=== PATIENT | male | born 1940 | race Caucasian/White ===

== ENCOUNTER 2018-08-31 13:46 | Emergency (ER) | payer MEDICARE, OTHER ==
[2018-08-31] MEDS ORDERED: Glucagon,Human Recombinant 1 MG Vial IVPUSH ONE (14:59)
--- NOTE | 2018-08-31 15:04 | EDM.PDOC ---
ED HPI GENERAL MEDICAL PROBLEM - General Chief Complaint: ENT Problem Stated Complaint: CHEST PAIN Time Seen by Provider: 08/31/18 13:53 Source of Information: Reports: Patient History Limitations: Reports: No Limitations - History of Present Illness INITIAL COMMENTS - FREE TEXT/NARRATIVE: 78 yo M comes in with after choking on some Hamburger at [employer] today. He states he feels the food is stuck in his throat and chest. He has never had this happen before. He does have a history of GERD and esophageal strictures, last saw surgeon for treatment of strictures "a few years ago" at [facility]. He also wears partial dentures, but was not wearing them today bc they have been causing him problems. He is able to breathe and swallow OK, but is actively spitting up and did vomit up some food bolus here. He currently complains of throat pain as well as 5-6/10 dull chest/epigastric pain. said he has been belching and was sweating earlier. He has no heart history. No other concerns at this time. PCP is Dr. Jenkins. Epigastric Pain Score (Numeric/FACES): 8 - Related Data Allergies Allergy/AdvReac Type Severity Reaction Status Date / Time No Known Allergies Allergy Verified 08/31/18 13:54 Home Meds: Home Meds Omeprazole [Prilosec] 20 mg PO DAILY 06/29/14 [History] B2/Vit A,C & E/Lut/Zeaxanth/Mn [Icaps] 1 tab PO DAILY 08/31/18 [History] Past Medical History Gastrointestinal History: Reports: GERD, Hiatal Hernia - Past Surgical History HEENT Surgical History: Reports: Other (See Below) Other HEENT Surgeries/Procedures: had esophagus stretched multiple times Social & Family History - Tobacco Use Smoking Status *Q: Current Every Day Smoker Years of Tobacco use: 65 Packs/Tins Daily: 0.2 - Caffeine Use Caffeine Use: Reports: Coffee - Recreational Drug Use Recreational Drug Use: No ED ROS ENT - Review of Systems Review Of Systems: See Below Constitutional: Reports: No Symptoms HEENT: Reports: Throat Pain Respiratory: Reports: No Symptoms. Denies: Shortness of Breath, Cough Cardiovascular: Reports: Chest Pain (5-) Endocrine: Denies: Polyuria (5-6/10) GI/Abdominal: Reports: Nausea, Vomiting (small amt of food bolus x 1). Denies: Abdominal Pain, Diarrhea : Reports: No Symptoms Musculoskeletal: Reports: No Symptoms Skin: Reports: No Symptoms Neurological: Reports: No Symptoms. Denies: Numbness, Tingling, Trouble Speaking Psychiatric: Reports: No Symptoms Hematologic/Lymphatic: Reports: No Symptoms Immunologic: Reports: No Symptoms ED EXAM, ENT - Physical Exam Exam: See Below Exam Limited By: No Limitations General Appearance: Alert, WD/WN, No Apparent Distress Eye Exam: Bilateral Eye: Normal Inspection Mouth/Throat: Normal Inspection, Normal Gums, Normal Lips, Normal Oropharynx, Throat Pain. No: Normal Teeth (missing numerous teeth, usually wears partial dentures but doesn't have them in), Hoarse Voice, Muffled Voice Neck: Normal Inspection, Supple, Non-Tender, Full Range of Motion Respiratory/Chest: No Respiratory Distress, Lungs Clear, Normal Breath Sounds, No Accessory Muscle Use, Chest Non-Tender Cardiovascular: Normal Peripheral Pulses, Regular Rate, Rhythm, No Edema, No Gallop, No JVD, No Murmur, No Rub GI/Abdominal: Normal Bowel Sounds, Soft, Non-Tender, No Organomegaly, No Distention, No Abnormal Bruit, No Mass Back: Normal Inspection Neurological: Alert, Oriented, CN II-XII Intact, Normal Cognition, Normal Gait, Normal Reflexes, No Motor/Sensory Deficits Psychiatric: Normal Affect, Normal Mood Skin: Warm, Dry, Intact, Normal Color, No Rash EKG INTERPRETATION EKG Date: 08/31/18 Time: 13:55 Rhythm: NSR Rate (Beats/Min): 91 [place]: Normal P-Wave: Present QRS: Normal ST-T: Normal QT: Normal Comparison: NA - No Prior EKG Course - Vital Signs Last Recorded V/S: Last Vital Signs Temp 97.2 F 08/31/18 13:51 Pulse 83 08/31/18 13:51 Resp 16 08/31/18 13:51 BP 194/119 H 08/31/18 13:51 Pulse Ox 97 08/31/18 13:51 - Orders/Labs/Meds Orders: Active Orders 24 hr Category Date Time Status EKG Documentation Completion [RC] ASDIRECTED Care 08/31/18 14:59 Active EKG 12 Lead [EK] Stat Ther 08/31/18 14:58 Ordered Labs: Laboratory Tests 08/31/18 Range/Units 15:15 Troponin I < 0.017 (0.00-0.056) ng/mL Meds: Medications Discontinued Medications Generic Name Dose Route Start Last Admin Trade Name Jennifer PRN Reason Stop Dose Admin Glucagon 1 mg 08/31/18 14:59 Glucagen IVPUSH 08/31/18 15:00 ONETIME ONE - Re-Assessments/Exams Free Text/Narrative Re-Assessment/Exam: 08/31/18 14:30 Discussed case with general surgeon Dr. Torres. He states that if the patient can swallow water/soda, does not need surgery at this time. Also, if he is unable to swallow and has a h/o esophageal strictures, he recommends he be sent to [facility] so they can do both the food removal and balloon for strictures. 08/31/18 15:00 Pt is tolerating warm water and soda at this time. Likely will not need surgery. Will give Glucagon if he still feels that there is food bolus stuck. At this time, he does not feel like it is there anymore. Will go ahead and complete a cardiac workup as well since he is having chest pain- EKG, troponin, CXR ordered. 08/31/18 15:[address] Chavira and myself- nothing acute seen at this time. CXR reviewed by Dr. Oliver and myself- nothing acute seen at this time. 08/31/18 16:05 Troponin <0.017 Cardiac workup is negative. Pt is feeling better. He is stable enough to go home. Departure - Departure Time of Disposition: 16:05 Disposition: Home, Self-Care 01 Condition: Good Clinical Impression: Food sticks on swallowing - Discharge Information *PRESCRIPTION DRUG MONITORING PROGRAM REVIEWED*: Not Applicable *COPY OF PRESCRIPTION DRUG MONITORING REPORT IN PATIENT JOAQUIN: Not Applicable Instructions: Dysphagia Eating Plan, Bite Size Food Referrals: Fuentes Jenkins MD [Primary Care Provider] - Forms: ED Department Discharge Additional Instructions: You were seen in the ED today for chest pain and difficulty swallowing after choking on hamburger. Your cardiac workup was negative. You were able to swallow water and soda while here, so there is no true obstruction that needs surgical intervention at this time. Due to your history of esophageal strictures , recommend follow up with your services manager, which you can get a referral by your primary care physician. Wear your dentures and try to avoid large pieces of food to prevent future choking. Please return to ED if new or worsening symptoms. - My Orders Last 24 Hours: My Active Orders 08/31/18 14:58 EKG 12 Lead [EK] Stat 08/31/18 14:59 EKG Documentation Completion [RC] ASDIRECTED - Assessment/Plan Last 24 Hours: My Active Orders 08/31/18 14:58 EKG 12 Lead [EK] Stat 08/31/18 14:59 EKG Documentation Completion [RC] ASDIRECTED
--- NOTE | 2018-08-31 15:56 | CR ---
Chest: Two views of the chest are obtained. Comparison: No prior chest imaging. Heart size is normal. Tortuous thoracic aorta is seen. Lungs are clear. Bony structures appear within normal limits for the patient's age. Impression: 1. Nothing acute is seen on two-view chest x-ray. Diagnostic code #1
[2018-08-31 16:30] VITALS: BP 158/88
== END 2018-08-31 16:28 | disposition home or self-care (01) ==
LOC: JD.ED 13:46
DX: R09.89 Other specified symptoms and signs involving the circulatory and respiratory systems (principal); F17.210 Nicotine dependence, cigarettes, uncomplicated; K21.9 Gastro-esophageal reflux disease without esophagitis; Z79.899 Other long term (current) drug therapy
CPT/HCPCS: 36415; 71046; 71046-26; 84484; 93005; 93010; 99283; 99285-25

== ENCOUNTER 2018-09-15 07:48 | Day surgery (SDC) | payer MEDICARE, OTHER ==
--- NOTE | 2018-09-14 13:18 | PCM.PREANE ---
Preanesthetic Assessment - Anesthesia/Transfusion/Family Hx Anesthesia History: Prior Anesthesia Without Reaction Family History of Anesthesia Reaction: No Transfusion History: No Prior Transfusion(s) Intubation History: Unknown - Review of Systems General: No Symptoms Pulmonary: No Symptoms (smokes 5-6 cigarettes per day times 60 years.) Cardiovascular: No Symptoms Gastrointestinal: No Symptoms (GERD), Difficulty Swallowing Neurological: No Symptoms Other: Reports: Easy Bruising, Throat Pain (history of and none present today.) - Physical Assessment NPO Status Date: 09/14/18 NPO Status Time: 21:00 Pulse: 76 O2 Sat by Pulse Oximetry: 96 Respiratory Rate: 16 Blood Pressure: 143/73 Temperature: 36.3 C Height: 1.68 m Weight: 87 kg ASA Class: 2 Mental Status: Alert & Oriented x3 Dentition: Reports: Normal Dentition, Partial, Caries Thyro-Mental Finger Breadths: 3 Mouth Opening Finger Breadths: 3 ROM/Head Extension: Full Lungs: Clear to Auscultation, Normal Respiratory Effort Cardiovascular: Regular Rate, Regular Rhythm, No Murmurs - Lab Values: All labs reviewed and noted and within acceptable ranges to proceed with scheduled procedure. - Imaging/EKG Impressions: EKG: SR rate=91, with pac's, abnormal Rwave progression CXR: unremarkable. - Allergies Allergies/Adverse Reactions: Allergies Allergy/AdvReac Type Severity Reaction Status Date / Time amoxicillin Allergy Headache Verified 09/14/18 14:20 - Anesthesia Plan Pre-Op Medication Ordered: None - Acknowledgements Anesthesia Type Planned: MAC Pt an Appropriate Candidate for the Planned Anesthesia: Yes Alternatives and Risks of Anesthesia Discussed w Pt/Guardian: Yes Pt/Guardian Understands and Agrees with Anesthesia Plan: Yes PreAnesthesia Questionnaire Gastrointestinal History: Reports: GERD, Hiatal Hernia - Past Surgical History HEENT Surgical History: Reports: Other (See Below) Other HEENT Surgeries/Procedures: had esophagus stretched multiple times - HOME MEDS Home Medications: Home Meds Omeprazole [Prilosec] 20 mg PO DAILY 06/29/14 [History] Ibuprofen 1 - 3 tab PO Q6H PRN 09/14/18 [History] Lutein/Minerals/Vit A,C & E [Ocuvite] 1 tab PO DAILY 09/14/18 [History] Sildenafil [Revatio] 100 mg PO ASDIRECTED PRN 09/14/18 [History]
[~2018-09-15 07:48] MED LIST: Ketamine 500 mg/10 ML MDV ONE; Midazolam Oral Soln 10 MG/5 ML Oral Syringe ONE; Propofol 200 MG/20 ML SDV ONE; fentaNYL 100 MCG/2 ML SDV ONE
[2018-09-15] MEDS ORDERED: Lidocaine 1%/Sod Bicarbonate in NS 8.4% 1 ML Syringe IDERM PRN (08:21)
[2018-09-15] MEDS ORDERED: Sodium Chloride 0.9% 10 ML Syringe FLUSH PRN (08:21)
[2018-09-15] MEDS ORDERED: fentaNYL 100 MCG/2 ML SDV ONE (08:26)
[2018-09-15] MEDS ORDERED: Lactated Ringers 1,000 ML IV SCH (08:30)
--- NOTE | 2018-09-15 09:40 | PCM48HPAN ---
Post Anesthesia Note - EVALUATION WITHIN 48HRS OF ANESTHETIC Vital Signs in Normal Range: Yes Patient Participated in Evaluation: Yes Respiratory Function Stable: Yes Airway Patent: Yes Cardiovascular Function Stable: Yes Hydration Status Stable: Yes Pain Control Satisfactory: Yes Nausea and Vomiting Control Satisfactory: Yes Mental Status Recovered: Yes
--- NOTE | 2018-09-15 09:49 | PCM.OPNOTE ---
- General Post-Op/Procedure Note Date of Surgery/Procedure: 09/15/18 Operative Procedure(s): EGD with bx an d balloon dilitation Pre Op Diagnosis: dysphagia hx pf barretts Primary Surgeon: Chau Whitman EBL in mLs: 0 Complications: None Condition: Good
[2018-09-15 10:48] VITALS: BP 154/94
--- NOTE | 2018-09-15 14:52 | OR ---
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 OPERATION PERFORMED: Esophagogastroduodenoscopy with 4-quadrant biopsy of the esophagus at 30 cm and biopsy of the distal esophagus at the GE junction located at 35 cm where an ulcer was present and balloon dilatation to 49-Cro[place]ian. FINDINGS: Second portion of the duodenum, duodenal bulb, pyloric channel, antrum, body, and cardia of the stomach and fundus unremarkable. Large hiatal hernia is noted with incompetence of the hiatus. The GE junction is located at 35 cm. Ulcer at the GE junction with some stricture and some creep of gastric mucosa up to 30 cm. Rest of the esophagus is unremarkable. ANESTHESIA: Procedure done under IV sedation. DESCRIPTION OF PROCEDURE: The patient was taken to the endoscopy room, placed in a supine position, connected to monitoring equipment, given IV sedation, and placed in the left lateral position. Bite block was inserted. A video Olympus gastroscope was placed in the posterior oropharynx under direct vision and threaded past the cricopharyngeus, down the esophagus, into the stomach. The stomach was insufflated and the scope passed through the pylorus and second portion of the duodenum. It was then slowly withdrawn showing normal second portion of the duodenum. Duodenal bulb and pyloric channel were all normal. Antrum showed some flattening of the mucosa and this was biopsied. Review of the otherwise body, cardia, and fundus of the stomach was unremarkable. J-maneuver showed an incompetent hiatus. Large hiatal hernia, which was fixed. Scope withdrawn to the GE junction, which was located at 35 cm and it showed some stricture formation and an ulcer, which was biopsied. The ulcer appeared to be circumferential and advanced up for a short distance. There was some change in the gastric mucosa creeping above the GE junction for about 5 cm. This area was biopsied in 4 quadrants at 30 cm. Rest of the esophagus viewed was unremarkable. Balloon was then inserted down the channel and dilated up to 49- Croatian without problem. Rest of the esophagus viewed was normal. The patient tolerated the procedure and was sent to recovery room in a stable condition and will be followed up in the clinic. ESTIMATED BLOOD LOSS: MMODAL /[id number]
== END 2018-09-15 10:35 | disposition home or self-care (01) ==
LOC: JD.SDS 07:48
PROVIDERS: ATTEND Surgery
DX: K21.0 Gastro-esophageal reflux disease with esophagitis (principal); K22.2 Esophageal obstruction; K44.9 Diaphragmatic hernia without obstruction or gangrene; R51 Headache; F17.210 Nicotine dependence, cigarettes, uncomplicated; C44.91 Basal cell carcinoma of skin, unspecified; Z79.899 Other long term (current) drug therapy; Z88.0 Allergy status to penicillin
CPT/HCPCS: 43233; 43239; J2704; J3010; J7120; 00731; A9270-GY

== ENCOUNTER 2022-06-16 10:33 | Emergency (ER) | payer MEDICARE, OTHER ==
[2022-06-16] MEDS ORDERED: Lidocaine 1% 10 ML MDV INJECT ONE (11:22)
[2022-06-16] MEDS ORDERED: Diphtheria,Pertussis(Acell),Tetanus Vaccine 0.5 ML Syringe IM ONE (11:22)
[2022-06-16 12:17] VITALS: BP 151/84; PULSE 80
== END 2022-06-16 12:13 | disposition home or self-care (01) ==
LOC: JD.ED 10:33
DX: S01.01XA Laceration without foreign body of scalp, initial encounter (principal); Z88.0 Allergy status to penicillin; Z79.899 Other long term (current) drug therapy; W01.198A Fall on same level from slipping, tripping and stumbling with subsequent striking against other object, initial encounter
CPT/HCPCS: 12002; 70450; 70450-26; 90471; 90715; 99283; 99283-25; J3490

== ENCOUNTER 2022-07-02 10:59 | Emergency (ER) | payer MEDICARE ==
[2022-07-02 11:28] VITALS: BP 162/58; PULSE 89
[2022-07-02] MEDS ORDERED: Sodium Chloride 0.9% 10 ML Syringe FLUSH PRN ×2 (11:30→11:56)
[2022-07-02] MEDS ORDERED: Sodium Chloride 0.9% 1,000 ML IV SCH (11:30)
[2022-07-02] MEDS ORDERED: Iopamidol 755 Mg/ML 100 ML Bottle IVPUSH ONE (11:56)
[2022-07-02] MEDS ORDERED: Sodium Chloride 0.9% 100 ML IV SCH (12:00)
[2022-07-02 12:55] LABS: CORONAVIRUS COVID-19 NAA NEGATIVE (NEGATIVE)
== END 2022-07-02 13:45 ==
LOC: JD.ED 10:59
DX: I63.9 Cerebral infarction, unspecified (principal); I65.21 Occlusion and stenosis of right carotid artery; Z88.0 Allergy status to penicillin; Z79.899 Other long term (current) drug therapy; Z72.0 Tobacco use; Z20.822 Contact with and (suspected) exposure to COVID-19
CPT/HCPCS: 0241U; 36415; 70450; 70496; 70498; 80053; 82947; 85025; 93005; 96360; 96361; 99285; J3490; J7030; Q9967